=== PATIENT | male | born 1945 | race Caucasian/White ===

== ENCOUNTER 2017-10-25 10:05 | Day surgery (SDC) | payer MEDICARE, OTHER ==
[2017-10-24 10:50] LABS: BASOPHILS % (AUTO) 0.3 % (0-1); EOSINOPHILS # (AUTO) 0.4 X10'3 (0-0.9); EOSINOPHILS % (AUTO) 5.1 % (0-6); HEMATOCRIT 44.7 % (42.0-52.0); HEMOGLOBIN 15.6 g/dl (14.0-17.9); LYMPHOCYTES # (AUTO) 1.2 X10'3 (1.1-4.8); LYMPHOCYTES % (AUTO) 17.2 % (21-51); MEAN CORPUSCULAR HEMOGLOBIN 33.2 PG (27.0-31.0); MEAN CORPUSCULAR HGB CONC 34.8 % (33.0-36.5); MEAN CORPUSCULAR VOLUME 95.5 FL (78-98); MEAN PLATELET VOLUME 10.1 FL (7.4-10.4); MONOCYTES # (AUTO) 0.7 X10'3 (0-0.9); MONOCYTES % (AUTO) 9.8 % (2-12); NEUTROPHILS # (AUTO) 4.8 X10'3 (1.8-7.7); NEUTROPHILS % (AUTO) 67.6 % (42-75); PLATELET COUNT 125 X10'3 (140-440); RED BLOOD COUNT 4.68 X10'6 (4.70-6.10); RED CELL DISTRIBUTION WIDTH 13.3 % (11.5-14.5); WHITE BLOOD COUNT 7.1 X10'3 (4.5-11.0)
[2017-10-24 11:00] LABS: ANION GAP 5 (8-16); BLOOD UREA NITROGEN 12 MG/DL (7-18); BUN/CREATININE RATIO 12.6 (5.4-32.0); CALCIUM 9.2 MG/DL (8.5-10.1); CHLORIDE 106 MMOL/L (99-107); CREATININE 0.95 MG/DL (0.60-1.10); GLUCOSE 96 MG/DL (70-104); POTASSIUM 4.1 MMOL/L (3.5-5.1); SODIUM 144 MMOL/L (135-145); TOTAL CARBON DIOXIDE 32.6 MMOL/L (24-32); eGFR 78 ML/MIN
[2017-10-24 11:02] LABS: PARTIAL THROMBOPLASTIN TIME 26 SECONDS (22-32)
[~2017-10-25] VITALS: Ht 177.8 cm; Wt 105.4 kg
[2017-10-25] VITALS (10 sets, daily range): BP systolic 113–156; BP diastolic 60–84
[~2017-10-25 10:05] MED LIST: ASCO500C15 PO; ASPI-1 PO; ATEN25TA PO; CALC-159 PO; CHOL100034 PO; CHON250C PO; CLOP75TA15 PO; FAMO-128 PO; FURO-150 PO; GLUC100017 PO; LACT1CAP73 PO; NIAC1CAP PO; OMEG-156 PO; POTA10TA19 PO; PYRI50TA10 PO; SIMV20TA5 PO; VITA400C65 PO
[2017-10-25] MEDS ORDERED: LORazepam 0.5 MG tablet PO PRN (10:25)
[2017-10-25] MEDS ORDERED: diphenhydrAMINE 25mg capsule PO PRN (10:25)
[2017-10-25] MEDS ORDERED: ASPI-1265 PO (10:54)
[2017-10-25] MEDS ORDERED: ALLO100T15 PO (10:54)
[2017-10-25] MEDS ORDERED: heparin 1,000unit/ml 10ml vial 10 ML ONE (12:03)
[2017-10-25] MEDS ORDERED: LIDOcaine 1%/PF (10mg/ml) 5ml vial ONE (12:03)
[2017-10-25] MEDS ORDERED: heparin 1,000 UNITS/NS 500ml 500 ML ONE (12:04)
[2017-10-25] MEDS ORDERED: nitroGLYCERIN-Tridil 50MG/D5W 250 ML IV ONE (12:04)
[2017-10-25] MEDS ORDERED: iohexol 350 MG/ML 50ML vial IV ONE (12:04)
[2017-10-25] MEDS ORDERED: iohexol 350MG/ML 100ml bottle IV ONE (12:04)
[2017-10-25] MEDS ORDERED: midazolam 2 mg/2 ml injection ONE (12:49)
[2017-10-25] MEDS ORDERED: fentaNYL/PF 50MCG/1 ML 2ML syringe ONE (12:49)
[2017-10-25] MEDS ORDERED: hydrALAZINE 20mg/ml inj. IV ONE (13:09)
[2017-10-25] MEDS ORDERED: normal saline 1000ml 1,000 ML IV SCH (14:15)
[2017-10-25] MEDS ORDERED: proCHLORperazine 10 MG/2 ml inj IV PRN (14:15)
[2017-10-25] MEDS ORDERED: ondansetron/PF 4mg/2ml inj IV PRN (14:15)
[2017-10-25] MEDS ORDERED: HYDROcodone/acetaminophen 10/325mg tab PO PRN (14:20)
[2017-10-25] MEDS ORDERED: HYDROcodone/acetaminophen 5mg/325mg tablet PO PRN (14:20)
== END 2017-10-25 19:07 | disposition home or self-care (01) ==
LOC: SSTAY O 10:05
PROVIDERS: ATTEND Internal Medicine Cardiovascular Disease
DX: I25.118 Atherosclerotic heart disease of native coronary artery with other forms of angina pectoris (principal); E78.5 Hyperlipidemia, unspecified; I10 Essential (primary) hypertension; M19.90 Unspecified osteoarthritis, unspecified site; K21.9 Gastro-esophageal reflux disease without esophagitis; F41.9 Anxiety disorder, unspecified; I44.7 Left bundle-branch block, unspecified; E66.9 Obesity, unspecified; Z79.82 Long term (current) use of aspirin; Z95.5 Presence of coronary angioplasty implant and graft; Z88.6 Allergy status to analgesic agent; Z79.01 Long term (current) use of anticoagulants; Z68.33 Body mass index [BMI] 33.0-33.9, adult; Z87.891 Personal history of nicotine dependence; Z90.49 Acquired absence of other specified parts of digestive tract; Z72.89 Other problems related to lifestyle; Z98.890 Other specified postprocedural states; Z85.828 Personal history of other malignant neoplasm of skin; Z79.899 Other long term (current) drug therapy
CPT/HCPCS: 36415; 80048; 85025; 85610; 85730; 93005; 93458; 99152; 99153; A6257; C1760; C1769; J0360; J1644; J2001; J2250; J2405; J3010; J3490; J7030; Q0163; Q9967; A4620